=== PATIENT | female | born 1985 | race Caucasian/White ===

== ENCOUNTER 2018-07-29 07:10 | Emergency (ER) | payer MEDICAID ==
[~2018-07-29] VITALS: Ht 170.2 cm; Wt 80.5 kg
[~2018-07-29 07:10] MED LIST: DIAZ5TAB4 PO; METO25TA91 PO; TRAM50TA2 PO
[2018-07-29 07:12] VITALS: BP 115/89
[2018-07-29] MEDS ORDERED: AZITHROMYCIN 500 MG TABLET PO ONE (08:00)
--- NOTE | 2018-07-29 08:10 | NUR ---
task rn: RN to administer medication DC pt per MD order
[2018-07-29] MEDS ORDERED: AZITHROMYCIN 500 MG TABLET ONE (08:12)
== END 2018-07-29 08:19 | disposition home or self-care (01) ==
LOC: ED 08:10
DX: L98.499 Non-pressure chronic ulcer of skin of other sites with unspecified severity (principal); Z90.49 Acquired absence of other specified parts of digestive tract; Z85.41 Personal history of malignant neoplasm of cervix uteri
CPT/HCPCS: 36415; 86592; 99283